=== PATIENT | female | born 1985 | race Caucasian/White ===

== ENCOUNTER 2016-08-08 19:48 | Emergency (ER) | payer OTHER ==
[2016-08-08 20:12] VITALS: BP 123/85
--- NOTE | 2016-08-08 20:42 | ED UPPER/LOWER EXTREMITY COMPL ---
History of Present Illness General Chief Complaint: Hand or Wrist Injury Stated Complaint: BOTH WRISTS PAIN S/P FALL Source: patient Exam Limitations: no limitations Vital Signs & Intake/Output Vital Signs & Intake/Output Vital Signs Date Time Temp Pulse Resp B/P Pulse O2 O2 Flow FiO2 Ox Delivery Rate 08/08 2011 92 22 123/85 98 Allergies Coded Allergies: Sulfa (Sulfonamide Antibiotics) (Severe, ANAPHYLAXIS 08/08/16) procaine (ANAPHYLAXIS 08/08/16) Reconcile Medications Vit No.130/Iron/FA ( Tablet) 27 MG IRON-800 MCG TABLET 1 TAB PO DAILY SUPPLEMENT (Reported) Triage Note: PER PT FELL SNOWBOARDING PAIN TO BILAT WRISTS L>R. L WRIST SPLINTED BY SNOW PATROL. DENIES NEED FOR MOTRIN. Triage Nurses Notes Reviewed? yes Onset: Abrupt Duration: constant Timing: recent history Severity: moderate Severity Numbers: 6 Pain/Injury Location: Bilateral: Wrist. Method of Injury: sports injury No Modifying Factors: none : No Patient currently breastfeeds: No HPI: Patient is a 30-year-old female who presents emergency room seen that today while snowboarding patient lost her balance and fell backwards in which she braced her fall with her outstretched bilateral hands in which she immediately had pain to both wrists. Pain is more severe on the left than the right. Denies any head strike back pain abdominal pain and trouble pain or shoulder pain. Patient was splinted by first aid team at the [facility] to the left wrist. (MARI SHARIF) Past History Travel History Traveled to [place] past 21 day No Medical History Any Pertinent Medical History? see below for history Neurological: NONE EENT: NONE Cardiovascular: NONE Respiratory: asthma Gastrointestinal: NONE Hepatic: NONE Renal: NONE Musculoskeletal: NONE Psychiatric: NONE Endocrine: NONE Surgical History Surgical History: non-contributory Psychosocial History Tobacco Use: Never used Family History Hx Contributory? No (MARI SHARIF) Review of Systems Review of Systems Constitutional: Reports: no symptoms. EENTM: Reports: no symptoms. Respiratory: Reports: no symptoms. Cardiovascular: Reports: no symptoms. Gastrointestinal/Abdominal: Reports: no symptoms. Genitourinary: Reports: no symptoms. Musculoskeletal: Reports: see HPI, joint pain. Skin: Reports: no symptoms. Neurological/Psychological: Reports: no symptoms. Hematologic/Endocrine: Reports: no symptoms. Immunological: Reports: no symptoms. All Other Systems: Reviewed and Negative (MARI SHARIF) Physical Exam Physical Exam General Appearance: no apparent distress, alert, awake, comfortable Neurologic/Tendon: normal sensation, normal motor functions, normal tendon functions, responds to pain, no evidence tendon injury, no pulse deficit Skin: intact, normal color, warm/dry Comments: Well-developed well-nourished person in no acute distress HEENT: Normal EENT exam. Neck: Supple, no lymphadenopathy, normal range of motion without pain or tenderness No central spinous tenderness Back: Nontender, no CVA tenderness. No central spinous tenderness Cardiovascular: Regular rate and rhythms no murmurs rubs or gallops, normal JVP Respiratory: Chest nontender. No respiratory distress.breath sounds clear to auscultation bilaterally Abdomen: Soft, nontender nondistended, no appreciable organomegaly. Normal bowel sounds. No ascites Extremity: No edema, no calf tenderness to palpation, normal and equal pulses. Bilateral shoulder nontender full active range of motion Bilateral elbow normal inspection nontender full active range of motion Left wrist noted radial distal point tenderness skin intact mild swelling decreased active range of motion noted with flexion and extension Right wrist noted generalized point tenderness with mild decreased active range of motion noted skin intact no swelling Radial pulse bilaterally +2 Bilateral upper extremity dermatomes intact capillary refill less than 2 seconds No scaphoid tenderness noted to right and left hand Neuro: Alert oriented x3, motor sensory normal, Skin: No appreciable rash on exposed skin, skin is warm and dry. Psych: Mood and affect is normal, memory and judgment is normal. (MAIR SHARIF) Progress Differential Diagnosis: arterial insufficiency, cellulitis, CHF, compartment syndrome, contusion, dislocation, DVT, fracture, gout, septic arthritis, sprain, tendon injury Plan of Care: Orders Procedure Date/time Status Durable Medical Equipment 08/084 Active URINE 08/08 2014 Complete Laboratory Tests 08/08/162033: Urine Test NEGATIVE Shoulder immobilizer was placed to left arm for stability and comfort after the sugar tong splint was applied to left forearm. I discussed disposition plan with patient to follow up with orthopedic doctor and she will comply. Upon discharge patient looks well no apparent distress. Patient was offered pain medications on multiple occasions in the emergency room and declined. (MRAI SHARIF) Diagnostic Imaging: Viewed by Me: Radiology Read. Radiology Impression: acute abnormality, fracture Comments: PATIENT: BEACH,JACIEL PRESENT AGE: 30 PATIENT ACCOUNT NO: [id number] : 84 LOCATION: [facility] ORDERING PHYSICIAN: MARI LEWIS SERVICE DATE: 08/08/16 EXAM TYPE: RAD - XRY-WRIST COMPLETE-LEFT; XRY-WRIST COMPLETE-RIGHT EXAMINATION: XRY-WRIST COMPLETE-LEFT, XRY-WRIST COMPLETE-RIGHT CLINICAL INFORMATION: Snowboarding accident. Injured both wrists. COMPARISON: None. TECHNIQUE: 4 views of both wrists. FINDINGS: Left wrist: The patient has incurred a nondisplaced nonangulated slightly comminuted slightly impacted fracture involving the metaphysis of the distal left radius. Fracture does involve the articular cortex. The ulna is intact. There is no dislocation. Right wrist: Negative for fracture or dislocation. Normal soft tissues. IMPRESSION: Nondisplaced slightly comminuted minimally impacted fracture involving the distal left radius with articular cortical involvement. No dislocation. (MARI SHARIF) Departure Departure Disposition: HOME OR SELF CARE Condition: Stable Clinical Impression Primary Impression: Fracture of left distal radius Secondary Impressions: Right wrist sprain Referrals: FELIPE PETERS,ANGIE (PCP/Family) VALERI TOLENTINO MD Additional Instructions: As discussed begin [id number] Tylenol if needed for pain and inflammation as directed. Tomorrow please call Dr. Tolentino-ORTHOPEDICS to establish an appointment to be seen for further evaluation treatment. Please leave the splint on the left forearm that has been applied to the emergency room at all Times until you follow with the orthopedic doctor. Only remove the right splint to the wrist when icing and taking a shower. Begin icing the area 20 minutes every 2 hours for pain and inflammation. If symptoms worsen return to emergency room. Begin using the shoulder immobilizer to your left arm for support of your splint at all times. Departure Forms: Customer Survey General Discharge Information (MARI SHARIF) PA/[employer]ATE [employer] PRESS FEEDER Co-Sign Statement Statement: ED Attending supervision documentation- [] I saw and evaluated the patient. I have also reviewed all the pertinent lab results and diagnostic results. I agree with the findings and the plan of care as documented in the PA's/[employer] PRESS FEEDER's documentation. [X] I have reviewed the ED Record and agree with the PA's/[employer] PR[employer] FEEDER's documentation. [] Additions or exceptions (if any) to the PAs/[employer] PRESS FEEDER's note and plan are summarized below: [] (SD PETERS,CHANTAL An) Procedures Splinting Location: BILATERAL WRISTS Manual Alignment Performed: No Hand-Made Type: orthoglass Splint: wrist Splint Applied By: splint applied by me Pre-Proc Neuro Vasc Exam: normal Post-Proc Neuro Vasc Exam: normal Progress: To the left wrist I applied a sugar tong splint using WEBRIL, ORTHOPEDIC GLASS AND RIGO WRAP To the right wrist I applied a cockup wrist splint in which to patient's upper extremities. (ANIRUDH LEWIS,MARI)
[2016-08-08] MEDS ORDERED: PRENATAL TABLE1 EAC2 PO (21:20)
--- NOTE | 2016-08-08 22:18 | RADIOLOGY REPORT ---
EXAMINATION: XRY-WRIST COMPLETE-LEFT, XRY-WRIST COMPLETE-RIGHT CLINICAL INFORMATION: Snowboarding accident. Injured both wrists. COMPARISON: None. TECHNIQUE: 4 views of both wrists. FINDINGS: Left wrist: The patient has incurred a nondisplaced nonangulated slightly comminuted slightly impacted fracture involving the metaphysis of the distal left radius. Fracture does involve the articular cortex. The ulna is intact. There is no dislocation. Right wrist: Negative for fracture or dislocation. Normal soft tissues. IMPRESSION: Nondisplaced slightly comminuted minimally impacted fracture involving the distal left radius with articular cortical involvement. No dislocation.
== END 2016-08-08 23:04 ==
LOC: ERH 19:48
DX: S52.502A Unspecified fracture of the lower end of left radius, initial encounter for closed fracture (principal); S63.501A Unspecified sprain of right wrist, initial encounter; V00.311A Fall from snowboard, initial encounter
CPT/HCPCS: 73110-LT; 73110-RT; 81025

== ENCOUNTER 2017-07-25 20:42 | Inpatient (IN) | payer OTHER ==
[~2017-07-25] VITALS: Ht 165.1 cm; Wt 85.9 kg
[~2017-07-25 20:42] MED LIST: PRENATAL TABLE1 EAC2 PO
[2017-07-25 23:33] LABS: ABSOLUTE BASOPHIL COUNT 0 /CUMM (0.0-0.2); ABSOLUTE EOSINOPHIL COUNT 0.1 /CUMM (0.0-0.7); ABSOLUTE GRANULOCYTE CT 11.1 /CUMM (1.4-6.5); ABSOLUTE LYMPH COUNT 2.9 /CUMM (1.2-3.4); BASOPHIL % 0.2 % (0.0-2.0); EOSINOPHIL % 0.7 % (0-5); GRANULOCYTE % 73.4 % (42.2-75.2); HEMATOCRIT 35.6 % (37-47); MEAN CORPUSCULAR HGB 28.5 PG (27.0-31.0); MEAN CORPUSCULAR HGB CONC 33.7 G/DL (33.0-37.0); MEAN CORPUSCULAR VOLUME 84.5 FL (81.0-99.0); PLATELET COUNT 347 /CUMM (130-400); RBC DISTRIBUTION WIDTH 16.6 % (11.5-14.5); RED BLOOD CELL CT 4.22 /CUMM (4.20-5.40); WHITE BLOOD CELL COUNT 15.1 /CUMM (4.8-10.8)
[2017-07-26 14:24] LABS: ABSOLUTE BASOPHIL COUNT 0 /CUMM (0.0-0.2); ABSOLUTE EOSINOPHIL COUNT 0 /CUMM (0.0-0.7); ABSOLUTE GRANULOCYTE CT 19.2 /CUMM (1.4-6.5); ABSOLUTE LYMPH COUNT 1.5 /CUMM (1.2-3.4); ABSOLUTE MONOCYTE COUNT 0.5 /CUMM (0.10-0.60); BASOPHIL % 0.1 % (0.0-2.0); EOSINOPHIL % 0 % (0-5); GRANULOCYTE % 90.6 % (42.2-75.2); HEMATOCRIT 31.1 % (37-47); MEAN CORPUSCULAR HGB 28.8 PG (27.0-31.0); MEAN CORPUSCULAR HGB CONC 34.3 G/DL (33.0-37.0); MEAN PLATELET VOLUME 6.9 FL (7.4-10.4); PLATELET COUNT 348 /CUMM (130-400); RBC DISTRIBUTION WIDTH 16.2 % (11.5-14.5); WHITE BLOOD CELL COUNT 21.2 /CUMM (4.8-10.8)
--- NOTE | 2017-07-26 14:45 | Operative Report ---
Operative/Inv Procedure Report Surgery Date: 07/26/17 Name of Procedure: Primary low flap transverse section via Pfannenstiel skin incision Pre-Operative Diagnosis: Patient requests section in labor term Post-Operative Diagnosis: Same OP Estimated Blood Loss: 1999 Surgeon/It Systems Analyst: Taj PETERS,Meliza Oropeza and Dr. Seng Johnson [facility] Anesthesia: block Operative/Procedure Note Note: Seizure note patient was taken the operating room placed on position patient had a Meeks placed on abdomen was prepped and draped so fashion I we did skin testing for surgery and found to be adequate a timeout was performed on through Pfannenstiel skin incision 2 finger breadths of symptoms pubis the skin was cut was carried down to rectus fascia which was cut in curvilinear fashion I direction using curved males at this point the rectus sheath was on the peritoneum was entered high into the abdomen I at this point the lower uterine segment was ballooned out in the lower uterine segment a bladder flap was developed the uterus was nicked entered with the back of the knife dissected bluntly as well as sharply. The was delivered over the abdominal wall from OP cord was doubly clamped cut section of the cord was sent for PH was handed billing analyst was waiting delivering to aid in resuscitation placenta was delivered manually noted to be intact impression of abruption on the placenta is being sent to pathology at this point the uterus was injected with intravenous Pitocin and intramyometrial myometrial Pitocin was used for uterine contractility the uterine artery on the right was bleeding was clamped with Saundra and the uterine artery on the left was bleeding clamped with a Saundra of 0 suture was used to ligate the uterine artery on the right and 0 suture was used to ligate the uterine artery on the left the eye uterus is reapproximated using running locking suture of 0 was indicated interrupted [id number] eights on as well as Intralipid imbricated with running locking suture of 0 hemostasis was apparent at this point the peritoneum was reapproximated 0 fascia was reapproximated after the abdomen the immediate irrigated copious amounts warm saline until clear and the incision on the uterus had been found to be hemostatic [place] was applied to the uterine incision the fascia was reapproximated to continue sutures #1 skin was reapproximated using lori after Bovie coagulation subcutaneous tissue I an intraoperative CB C was sent on at this point the on approximately thousand cc was evacuated from the vagina a trejo speculum was liters to look at the cervix which was closed and there was no further bleeding interventional radiology had been contacted and we will say breasts of the uterine arteries for possible uterine artery ablations 2 units of blood was started patient was transferred recovery room awake and alert with counts correct and the urine was clear
[2017-07-26 18:28] LABS: ABSOLUTE BASOPHIL COUNT 0 /CUMM (0.0-0.2); ABSOLUTE EOSINOPHIL COUNT 0 /CUMM (0.0-0.7); ABSOLUTE GRANULOCYTE CT 23.4 /CUMM (1.4-6.5); ABSOLUTE LYMPH COUNT 1.1 /CUMM (1.2-3.4); ABSOLUTE MONOCYTE COUNT 0.7 /CUMM (0.10-0.60); BASOPHIL % 0 % (0.0-2.0); EOSINOPHIL % 0 % (0-5); GRANULOCYTE % 92.6 % (42.2-75.2); HEMATOCRIT 30.4 % (37-47); MEAN CORPUSCULAR HGB 29.7 PG (27.0-31.0); MEAN CORPUSCULAR HGB CONC 34.2 G/DL (33.0-37.0); MEAN CORPUSCULAR VOLUME 86.9 FL (81.0-99.0); MEAN PLATELET VOLUME 6.9 FL (7.4-10.4); PLATELET COUNT 274 /CUMM (130-400); RBC DISTRIBUTION WIDTH 15.2 % (11.5-14.5); WHITE BLOOD CELL COUNT 25.3 /CUMM (4.8-10.8)
--- NOTE | 2017-07-26 19:32 | PN- Post Delivery/GYN ---
Subjective Subjective: Patient complaint of pain Objective Last 24 Hrs of Vital Signs/I&O Vital Signs Date Time Temp Pulse Resp B/P B/P Pulse O2 O2 Flow FiO2 Mean Ox Delivery Rate 07/26 0029 132/80 Intake & Output 07/26 1600 07/26 0800 07/26 0000 Intake Total Output Total Balance Patient 190 lb Weight Physical Exam: Pale white female HEENT anicteric Dressing dry fundus firm at umbilicus Vagina expressed for 500 mL of clot from the uterus extremities +1 edema Assessment/Plan Assessment/Plan Assessment hemorrhage secondary to uterine artery laceration severe anemia Plan Cytotec rectally thousand milligrams Lasix 2 more units of packed red blood cells interventional radiology embolization of the hypogastrics and follow-up in the ICU CB C2 hours after fourth unit of blood target hematocrit 31
--- NOTE | 2017-07-26 20:14 | Cons- Medical ---
[facility] General Information and HPI Consulting Request Date of Consult: 07/26/17 Requested By: Meliza Vang MD Reason for Consult: Anemia secondary to hemorrhage Source of Information: patient, Dr. Vang Exam Limitations: no limitations History of Present Illness: Patient is a 31-year-old female with no significant past medical history presented to the childbirth center today for delivery. She was in labor for the whole day. Patient was intended to have a normal delivery however was unable to push enough. This prompted a section due to unfavorable position of the fetus. Patient had hemorrhage secondary to uterine artery lacerations.No history of bleeding disorders. She was transfused 2 units of blood and IV fluids along with MIsoprostol rectally. Bleeding stopped however she was still found to have 1000cc of blood in her uterus and was sent down to IR for possible embolization. She underwent bilateral hypogastric artery embolization in the IR suite by Dr. Germain however no active sources of bleeding was found. Patient has been currently transferred to ICU for close monitoring of hemodynamics, I's and O's and every 2 hours labs Allergies/Medications Allergies: Coded Allergies: Sulfa (Sulfonamide Antibiotics) (Severe, ANAPHYLAXIS 08/08/16) procaine (ANAPHYLAXIS 08/08/16) Home Med List: Vit No.130/Iron/FA ( Tablet) 27 MG IRON-800 MCG TABLET 1 TAB PO DAILY SUPPLEMENT (Reported) Review of Systems Review of Systems Constitutional: Reports: malaise, weakness. EENTM: Reports: no symptoms. Cardiovascular: Reports: no symptoms. Respiratory: Reports: no symptoms. GI: Reports: no symptoms. Genitourinary: Reports: no symptoms. Musculoskeletal: Reports: back pain, muscle pain. Skin: Reports: change in skin color. Neurological/Psychological: Reports: anxiety. Past History Travel History Traveled to [place] past 21 day No Medical History Neurological: NONE EENT: NONE Cardiovascular: NONE Respiratory: asthma Gastrointestinal: NONE Hepatic: NONE Renal: NONE Musculoskeletal: NONE Psychiatric: NONE Endocrine: NONE Surgical History Surgical History: non-contributory Psychosocial History Smoking Status: Never Smoked Exam & Diagnostic Data Last 24 Hrs of Vital Signs/I&O Vital Signs Date Time Temp Pulse Resp B/P B/P Pulse O2 O2 Flow FiO2 Mean Ox Delivery Rate 07/26 0029 132/80 Intake & Output 01/03 1600 07/26 0800 07/26 0000 Intake Total Output Total Balance Patient 86.183 kg Weight Physical Exam General Appearance: well developed/nourished, alert, awake, mild distress, obese Head: atraumatic, normal appearance Eyes: Bilateral: normal appearance, PERRL, EOMI, pale conjunctivae. Ears, Nose, Throat: normal pharynx, normal ENT inspection Neck: normal inspection, supple, full range of motion Respiratory: normal breath sounds, quiet respiration, lungs clear, mild wheezing on the right base Cardiovascular: regular rate/rhythm, tachycardia Breasts Breast appear nl Gastrointestinal: soft, non-tender, tenderness, C section incision appears clean and intact. No drainage Back: normal inspection Extremities: normal inspection, normal capillary refill, no edema Last 24 Hrs of Labs/Dami: Laboratory Tests 07/26/17 1815: CBC w Diff MAN DIFF ORDERED, RBC 3.50 L, MCV 86.9, MCH 29.7, RDW 15.2 H, MPV 6.9 L, Gran % 92.6 H, Lymphocytes % 4.5 L, Monocytes % 2.9, Eosinophils % 0, Basophils % 0, Absolute Granulocytes 23.4 H, Segmented Neutrophils 88 H, Band Neutrophils 7 H, Absolute Lymphocytes 1.1 L, Lymphocytes 3 L, Monocytes 2, Absolute Monocytes 0.7 H, Absolute Eosinophils 0, Absolute Basophils 0, Platelet Estimate ADEQUATE, Polychromasia 1+, Anisocytosis 1+, PUBS MCHC 34.2 07/26/17 1412: CBC w Diff MAN DIFF ORDERED, RBC 3.70 L, MCV 84.0, MCH 28.8, RDW 16.2 H, MPV 6.9 L, Gran % 90.6 H, Lymphocytes % 6.9 L, Monocytes % 2.4, Eosinophils % 0, Basophils % 0.1, Absolute Granulocytes 19.2 H, Segmented Neutrophils 90 H, Band Neutrophils 3, Absolute Lymphocytes 1.5, Lymphocytes 5 L, Monocytes 2, Absolute Monocytes 0.5, Absolute Eosinophils 0, Absolute Basophils 0, Platelet Estimate ADEQUATE, Normocytic RBCs VERIFIED, Normochromic RBCs VERIFIED, PUBS MCHC 34.3, Fld Total RBCs Counted 100 07/25/17 2315: CBC w Diff NO MAN DIFF REQ, RBC 4.22, MCV 84.5, MCH 28.5, RDW 16.6 H, MPV 7.0 L, Gran % 73.4, Lymphocytes % 19.2 L, Monocytes % 6.5, Eosinophils % 0.7, Basophils % 0.2, Absolute Granulocytes 11.1 H, Absolute Lymphocytes 2.9, Absolute Monocytes 1.0 H, Absolute Eosinophils 0.1, Absolute Basophils 0, PUBS MCHC 33.7, RPR Titer/FTA Pending, Urinalysis LIGHT H, Urine Color YEL, Urine Clarity CLEAR, Urine pH 6.5, Ur Specific [place] 1.020, Urine Protein NEG, Urine Ketones NEG, Urine Nitrite NEG, Urine Bilirubin NEG, Urine Urobilinogen 0.2, Ur Leukocyte Esterase TRACE H, Ur Microscopic SEDIMENT EXAMINED, Urine RBC 10-15 H, Urine WBC 5-10 H, Ur Epithelial Cells FEW, Urine Crystals 1+ CA OX H, Urine Bacteria MOD H, Urine Mucus MOD H, Urine Hemoglobin MOD H, Urine Glucose NEG Assessment/Plan Assessment/Plan Patient is a 31-year-old female with no significant past medical history presented to the childbirth center today for delivery. Patient had hemorrhage secondary to uterine artery lacerations. No history of bleeding disorders. She was transfused 2 units of blood and IV fluids along with MIsoprostol rectally. Bleeding stopped however she was still found to have 1000cc of blood in her uterus and was sent down to IR for possible embolization. She underwent bilateral hypogastric artery embolization in the IR suite by Dr. Germain however no active sources of bleeding was found. Patient has been currently transferred to ICU for close monitoring of hemodynamics, I's and O's and every 2 hours labs. Assessment : #1 hemorrhage due to laceration of uterine arteries #2 Status post IR embolization of hypogastric arteries/no active source of bleeding identified #3 Anemia secondary to acute blood loss #4 Status post section #5 Tachycardia #6 leukocytosis with bandemia #7 Anxiety #8 Shoulder pain Plan -Close monitoring in ICU -Vitals per protocol -Every 2 hours labs -Meeks in, strict I's and O's -Check EKG now, troponin. -Replete electrolytes as needed. -Status post 2 units of blood transfusion. Last H&H 10.4/30.4(baseline 11-12). We will recheck CBC and ICU bundle at 10 PM. Transfusion goal more than 10/30. Closely monitor for bleeding. -Gentle hydration with IV D5 half normal saline at 100 cc an hour -Cautioned not to fluid overload. Patient got IV 10 mg Lasix at the childbirth center -Pain control with acetaminophen 1 g every 6 hours IV when necessary. Lidoderm patches for shoulder pain -Leukocytosis likely reactive. Check labs at 10 PM. If bandemia persists, get blood/urine cultures -CRCU consult in a.m. -COCOA POWDER MIXER OPERATOR recommendations appreciated. Can reach Dr. Vang at [phone] -Nothing by mouth for now. We will advance diet in a.m. -DVT prophylaxis Alps(no pharmacological anticoagulation until tomorrow) Stock Letterer Dr. Warner aware of the patient. Problem List: 1. hemorrhage 2. Consult Acknowledgment - Thank you for your consult request. Graham Razo 07/27/17 0456: Assessment/Plan Consult Acknowledgment - Thank you for your consult request. Attending MD Review Statement Attending Statement Attending MD Statement: examined this patient, discuss w/resident/PA/CROP PEST CONTROL SPECIALIST, agreed w/resident/PA/CROP PEST CONTROL SPECIALIST, discussed with family, reviewed EMR data (avail), reviewed images, amended to note Attending Assessment/Plan: Reason of consult: hemorrhage 31-year-old female , no significant past medical history was in childbirth center for normal delivery, but secondary to unfavorable position patient underwent section. It was complicated by hemorrhage secondary to uterine artery laceration. Patient was transfused 2 units PRBC, aggressive IV hydration and IR was consulted for possible embolization. It was estimated that Patient may have lost 1000 ML of blood. Patient was borderline hypotensive, improved with blood transfusion and IV fluids. Patient underwent bilateral hypogastric artery embolization. Patient was transferred to ICU for close hemodynamic monitoring. Patient complains of dryness of mouth and vague abdominal discomfort otherwise asymptomatic. On examination blood pressure low normal range, mild tachycardia, mucosa dry, trace pedal edema, abdominal band and dressing, right femoral sheath. Patient has low H&H, leukocytosis with left shift. Anemia is obviously secondary to acute blood loss. Leukocytosis can be reactive. So far patient has been transfused 4 units PRBC, we will closely watch H&H, blood pressure and consultative management for leukocytosis, will need blood culture if persistently high WBC or fever spike. CRCU consult in a.m.
[2017-07-26 22:33] LABS: ABSOLUTE BASOPHIL COUNT 0 /CUMM (0.0-0.2); ABSOLUTE EOSINOPHIL COUNT 0 /CUMM (0.0-0.7); ABSOLUTE LYMPH COUNT 1.5 /CUMM (1.2-3.4); ABSOLUTE MONOCYTE COUNT 0.9 /CUMM (0.10-0.60); BASOPHIL % 0 % (0.0-2.0); EOSINOPHIL % 0 % (0-5); HEMATOCRIT 28.6 % (37-47); MEAN CORPUSCULAR HGB 30.2 PG (27.0-31.0); MEAN CORPUSCULAR HGB CONC 34.6 G/DL (33.0-37.0); MEAN CORPUSCULAR VOLUME 87.4 FL (81.0-99.0); PLATELET COUNT 263 /CUMM (130-400); RBC DISTRIBUTION WIDTH 15.3 % (11.5-14.5); RED BLOOD CELL CT 3.27 /CUMM (4.20-5.40); WHITE BLOOD CELL COUNT 22.5 /CUMM (4.8-10.8)
[2017-07-26 23:01] LABS: GRANULOCYTE % 89.1 % (42.2-75.2)
[2017-07-27] VITALS: BP 93/51
[2017-07-27 06:01] LABS: ABSOLUTE BASOPHIL COUNT 0 /CUMM (0.0-0.2); ABSOLUTE EOSINOPHIL COUNT 0 /CUMM (0.0-0.7); ABSOLUTE GRANULOCYTE CT 13.8 /CUMM (1.4-6.5); ABSOLUTE LYMPH COUNT 2.6 /CUMM (1.2-3.4); ABSOLUTE MONOCYTE COUNT 0.9 /CUMM (0.10-0.60); BASOPHIL % 0.3 % (0.0-2.0); EOSINOPHIL % 0.1 % (0-5); GRANULOCYTE % 79.3 % (42.2-75.2); HEMATOCRIT 28.8 % (37-47); MEAN CORPUSCULAR HGB 30.1 PG (27.0-31.0); MEAN CORPUSCULAR HGB CONC 34.8 G/DL (33.0-37.0); MEAN CORPUSCULAR VOLUME 86.5 FL (81.0-99.0); MEAN PLATELET VOLUME 6.9 FL (7.4-10.4); PLATELET COUNT 233 /CUMM (130-400); RBC DISTRIBUTION WIDTH 15.6 % (11.5-14.5); RED BLOOD CELL CT 3.33 /CUMM (4.20-5.40); WHITE BLOOD CELL COUNT 17.4 /CUMM (4.8-10.8)
[2017-07-27 08:00] VITALS: BP 122/74
--- NOTE | 2017-07-27 08:14 | PN- Resident CRCU ---
Subjective HPI/CRCU Issues: #1 hemorrhage due to laceration of uterine arteries #2 Status post IR embolization of hypogastric arteries/no active source of bleeding identified #3 Anemia secondary to acute blood loss #4 Status post section #5 Tachycardia #6 leukocytosis with bandemia #7 Anxiety #8 Shoulder pain 24 Hour Events: Patient was transferred to the ICU s/p IR embolization of hypogastric arteries for monitoring. Overnight she reports no complaints or acute events. Objective Vital Signs & I&O Last 8 Hrs of Vitals and I&O: Tmax: 98.6 BP: 93-177/51-74 HR:101-108 I:692 O:1000 Exam General Appearance: well developed/nourished, no apparent distress, alert, awake , comfortable Head: atraumatic, normal appearance Ears, Nose, Throat: normal pharynx, normal ENT inspection, hearing grossly normal Neck: normal inspection, supple, full range of motion Respiratory: normal breath sounds, no respiratory distress, lungs clear Cardiovascular: regular rate/rhythm Gastrointestinal: normal bowel sounds, soft, Pelvic sutures intact Extremities: normal inspection, normal range of motion, no edema, L DP nonpalpable, heard with doppler Cranial Nerves: normal hearing, normal speech, PERRL Current Medications: Current Medications Sig/Greg Start time Last Medication Dose Route Stop Time Status Admin Acetaminophen 650 MG Q4P PRN 07/27 1245 AC PO Acetaminophen 1,000 MG Q6P PRN 07/26 2130 DC 07/27 N/A 1 UNIT IV 1004 Acetaminophen 1,000 MG Q6-PRN PRN 07/26 2030 DC PO Bisacodyl 10 MG DAILY NEEDED PRN 07/26 1330 DC ND Calcium Gluconate 1 GM ONCE ONE 07/27 0030 DC 07/27 Sodium Chloride 100 ML IV 07/27 0129 0047 Cefazolin Sodium 2,000 MG .STK-MED ONE 07/26 1341 DC IM 07/26 1342 Citric Acid/Sodium 30 ML .[0NCE] 07/26 1330 DC Citrate PO Dextrose/Sodium 1,000 ML Q20H 07/26 2030 DC 07/26 Chloride IV 2040 Docusate Sodium 100 MG AT BEDTIME PRN 07/27 1245 AC PO Docusate Sodium 100 MG AT BEDTIME PRN 07/26 1330 DC PO Enoxaparin Sodium 40 MG DAILY 07/28 1000 AC SC Enoxaparin Sodium 40 MG DAILY 07/26 1324 DC SC Fentanyl Citrate 0 .STK-MED ONE 07/26 1748 DC .ROUTE Furosemide 10 MG ONCE ONE 07/26 1730 DC IV 07/26 1731 Hydroxyzine HCl 50 MG AT BEDTIME NEED.. 07/28 0000 AC PO Hydroxyzine HCl 50 MG AT BEDTIME NEED.. 07/27 0000 DC PO Ibuprofen 800 MG Q6P PRN 07/27 1245 AC PO Ibuprofen 800 MG Q6P PRN 07/26 1330 DC PO Lactated Ringer's 1,000 ML Q8H 07/26 1330 DC IV Lactated Ringer's 1,000 ML Q8H 07/26 0030 DC 07/26 IV 1239 Lidocaine 1 PAT 2200 07/26 2200 DC EXT Magnesium Hydroxide 30 ML DAILY NEEDED PRN 07/27 1245 AC PO Magnesium Hydroxide 30 ML DAILY NEEDED PRN 07/26 1330 DC PO Magnesium Oxide 400 MG ONE ONE 07/27 0830 DC 07/27 PO 07/27 0831 1129 Magnesium Sulfate 1 GM .STK-MED ONE 07/27 0203 DC IV 07/27 0204 Magnesium Sulfate 1 GM .STK-MED ONE 07/27 0046 DC IV 07/27 0047 Magnesium Sulfate 1 GM Q2H 07/26 2315 DC 07/27 Dextrose/Water 100 ML IV 07/27 0314 0202 Midazolam HCl 0 .STK-MED ONE 07/26 1748 DC .ROUTE Midazolam HCl 5 MG .STK-MED ONE 07/26 1341 DC IM 07/26 1342 Misoprostol 1,000 MCG ONCE ONE 07/26 1715 DC 07/26 ND 07/26 1716 1715 Misoprostol 1,000 MCG .STK-MED ONE 07/26 1711 DC PO 07/26 1712 Morphine Sulfate 10 MG .STK-MED ONE 07/26 1340 DC IV 07/26 1341 Oxycodone/ 1 TAB Q4P PRN 07/27 1245 AC Acetaminophen PO Oxycodone/ 2 TAB Q4P PRN 07/27 1245 AC Acetaminophen PO Oxycodone/ 1 TAB Q4P PRN 07/26 1330 DC Acetaminophen PO Oxycodone/ 2 TAB Q4P PRN 07/26 1330 DC Acetaminophen PO Oxytocin 10 UNITS ONCE ONE 07/27 1245 DC IM 07/27 1246 Oxytocin 20 UNITS Q8H 07/26 1330 DC Lactated Ringer's 1,000 ML IV 07/26 2129 Oxytocin 10 UNITS ONCE ONE 07/26 1330 DC IM 07/26 1331 Oxytocin 30 UNITS PER PROTOCL 07/26 0800 DC 07/26 Lactated Ringer's 500 ML IV 0807 Senna 187 MG AT BEDTIME NEED.. 07/27 1245 AC PO Senna 187 MG AT BEDTIME NEED.. 07/26 1330 DC PO Impression/Plan Impression/Problem List Impression: 31-year-old female with no significant past medical history s/p low flap transverse delivery with hemorrhage s/p embolization of hypogastric arteries transferred to ICU for close monitoring. Patient currently stable and required no other medical interventions. As per Dr. Taj terry is stable for transfer to [facility] Active issues: #1 hemorrhage due to laceration of uterine arteries s/p 4U prbcs #2 Status post IR embolization of hypogastric arteries/no active source of bleeding identified #3 Anemia secondary to acute blood loss #4 Status post section #5 Tachycardia #6 leukocytosis with bandemia #7 Anxiety #8 Shoulder pain #9 Hypomagnesemia Plan * Strict I&O * Monitor vitals * Monitor H&H * Continue LR for hydration * Continue bowel regmien * continue pain pathway * Replete Mg * Advance diet as tolerated * JACKERMAN recommendations appreciated DVT ppx: ALPS Problem List: 1. hemorrhage Pain Ratin Tomorrow's Labs & Rationales: None Plan DVT/Prophylaxis: mechanical
--- NOTE | 2017-07-27 09:50 | PN- CRCU ---
Subjective HPI/Critical Care Issues: Doing well hemorrhage secondary to uterine artery laceration severe anemia S/p embolization bilateral hypogastric artery embolization in the IR suite S/p 4 units of prbc Stable now No sig pain No leg pain Objective Current Medications: Current Medications Sig/Greg Start time Last Medication Dose Route Stop Time Status Admin Acetaminophen 1,000 MG Q6P PRN 07/26 2130 AC 07/26 N/A 1 UNIT IV 2138 Acetaminophen 1,000 MG Q6-PRN PRN 07/26 2030 DC PO Bisacodyl 10 MG DAILY NEEDED PRN 07/26 1330 DC NC Calcium Gluconate 1 GM ONCE ONE 07/27 0030 DC 07/27 Sodium Chloride 100 ML IV 07/27 0129 0047 Cefazolin Sodium 2,000 MG .STK-MED ONE 07/26 1341 DC IM 07/26 1342 Citric Acid/Sodium 30 ML .[0NCE] 07/26 1330 DC Citrate PO Dextrose/Sodium 1,000 ML Q20H 07/26 2030 AC 07/26 Chloride IV 2040 Docusate Sodium 100 MG AT BEDTIME PRN 07/26 1330 DC PO Enoxaparin Sodium 40 MG DAILY 07/26 1324 DC SC Fentanyl Citrate 0 .STK-MED ONE 07/26 1748 DC .ROUTE Furosemide 10 MG ONCE ONE 07/26 1730 DC IV 07/26 1731 Hydroxyzine HCl 50 MG AT BEDTIME NEED.. 07/27 0000 DC PO Ibuprofen 800 MG Q6P PRN 07/26 1330 DC PO Lactated Ringer's 1,000 ML Q8H 07/26 1330 DC IV Lactated Ringer's 1,000 ML Q8H 07/26 0030 DC 07/26 IV 1239 Lidocaine 1 PAT 2200 07/26 2200 AC EXT Magnesium Hydroxide 30 ML DAILY NEEDED PRN 07/26 1330 DC PO Magnesium Oxide 400 MG ONE ONE 07/27 0830 DC PO 07/27 0831 Magnesium Sulfate 1 GM .STK-MED ONE 07/27 0046 DC IV 07/27 0047 Magnesium Sulfate 1 GM Q2H 07/26 2315 DC 07/27 Dextrose/Water 100 ML IV 07/27 0314 0202 Midazolam HCl 0 .STK-MED ONE 07/26 1748 DC .ROUTE Midazolam HCl 5 MG .STK-MED ONE 07/26 1341 DC IM 07/26 1342 Misoprostol 1,000 MCG ONCE ONE 07/26 1715 DC 07/26 NC 07/26 1716 1715 Misoprostol 1,000 MCG .STK-MED ONE 07/26 1711 DC PO 07/26 1712 Morphine Sulfate 10 MG .STK-MED ONE 07/26 1340 DC IV 07/26 1341 Oxycodone/ 1 TAB Q4P PRN 07/26 1330 DC Acetaminophen PO Oxycodone/ 2 TAB Q4P PRN 07/26 1330 DC Acetaminophen PO Oxytocin 20 UNITS Q8H 07/26 1330 DC Lactated Ringer's 1,000 ML IV 07/26 2129 Oxytocin 10 UNITS ONCE ONE 07/26 1330 DC IM 07/26 1331 Oxytocin 30 UNITS PER PROTOCL 07/26 08 DC 07/26 Lactated Ringer's 500 ML IV 0807 Senna 187 MG AT BEDTIME NEED.. 07/26 1330 DC PO Vital Signs & I&O Last 24 Hrs of Vitals and I&O: Vital Signs Date Time Temp Pulse Resp B/P B/P Pulse O2 O2 Flow FiO2 Mean Ox Delivery Rate 07/27 08 98.0 101 20 122/74 96 Room Air 07/27 0400 97 Room Air 07/27 0000 98.6 108 20 93/51 96 Room Air 07/27 0000 96 Room Air 07/26 2237 98.6 07/26 2138 99.3 07/26 2000 10 Nasal 2.0L Cannula Intake & Output 07/27 1600 07/27 0800 07/27 0000 Intake Total 692 2171 Output Total 1000 2200 Balance -308 -29 Intake, Blood 350 1050 Product Intake, IV 342 1121 Intake, Oral 0 0 Number 0 0 Bowel Movements Output, Other 2000 Output, Urine 1000 200 Patient 189 lb Weight Weight Bed scale Measurement Method Laboratory Tests 07/27 07/27 0600 0525 Chemistry Sodium (137 - 145 mmol/L) 136 L Potassium (3.5 - 5.1 mmol/L) 4.0 Chloride (98 - 107 mmol/L) 105 Carbon Dioxide (22 - 30 mmol/L) 23 Anion Gap (5 - 16) 7 BUN (7 - 17 mg/dL) 8 Creatinine (0.5 - 1.0 mg/dL) 0.6 Estimated GFR (>60 ml/min) > 60 Glucose (65 - 99 mg/dL) 93 Calcium (8.4 - 10.2 mg/dL) 7.6 L Phosphorus (2.5 - 4.5 mg/dL) 3.8 Magnesium (1.6 - 2.3 mg/dL) 1.9 Total Bilirubin (0.2 - 1.3 mg/dL) 0.6 AST (14 - 36 U/L) 33 ALT (9 - 52 U/L) 33 Troponin I (< 0.11 ng/ml) < 0.01 Albumin (3.5 - 5.0 g/dL) 1.8 L Hematology CBC w Diff Cancelled NO MAN DIFF REQ WBC (4.8 - 10.8 /CUMM) Cancelled 17.4 H RBC (4.20 - 5.40 /CUMM) Cancelled 3.33 L Hgb (12.0 - 16.0 G/DL) Cancelled 10.0 L Hct (37 - 47 %) Cancelled 28.8 L MCV (81.0 - 99.0 FL) Cancelled 86.5 MCH (27.0 - 31.0 PG) Cancelled 30.1 RDW (11.5 - 14.5 %) Cancelled 15.6 H Plt Count (130 - 400 /CUMM) Cancelled 233 MPV (7.4 - 10.4 FL) Cancelled 6.9 L Gran % (42.2 - 75.2 %) 79.3 H Lymphocytes % (20.5 - 51.1 %) 14.9 L Monocytes % (1.7 - 9.3 %) 5.4 Eosinophils % (0 - 5 %) 0.1 Basophils % (0.0 - 2.0 %) 0.3 Absolute Granulocytes (1.4 - 6.5 /CUMM) 13.8 H Absolute Lymphocytes (1.2 - 3.4 /CUMM) 2.6 Absolute Monocytes (0.10 - 0.60 /CUMM) 0.9 H Absolute Eosinophils (0.0 - 0.7 /CUMM) 0 Absolute Basophils (0.0 - 0.2 /CUMM) 0 PUBS MCHC (33.0 - 37.0 G/DL) Cancelled 34.8 07/26 07/26 2145 1815 Chemistry Sodium (137 - 145 mmol/L) 132 L Potassium (3.5 - 5.1 mmol/L) 4.0 Chloride (98 - 107 mmol/L) 104 Carbon Dioxide (22 - 30 mmol/L) 23 Anion Gap (5 - 16) 5 BUN (7 - 17 mg/dL) 9 Creatinine (0.5 - 1.0 mg/dL) 0.6 Estimated GFR (>60 ml/min) > 60 Glucose (65 - 99 mg/dL) 94 Calcium (8.4 - 10.2 mg/dL) 7.4 L Phosphorus (2.5 - 4.5 mg/dL) 3.3 Magnesium (1.6 - 2.3 mg/dL) 1.2 L Total Bilirubin (0.2 - 1.3 mg/dL) 0.7 AST (14 - 36 U/L) 22 ALT (9 - 52 U/L) 29 Troponin I (< 0.11 ng/ml) 0.02 Albumin (3.5 - 5.0 g/dL) 1.7 L Hematology CBC w Diff NO MAN DIFF REQ MAN DIFF ORDERED WBC (4.8 - 10.8 /CUMM) 22.5 H 25.3 H RBC (4.20 - 5.40 /CUMM) 3.27 L 3.50 L Hgb (12.0 - 16.0 G/DL) 9.9 L 10.4 L Hct (37 - 47 %) 28.6 L 30.4 L MCV (81.0 - 99.0 FL) 87.4 86.9 MCH (27.0 - 31.0 PG) 30.2 29.7 RDW (11.5 - 14.5 %) 15.3 H 15.2 H Plt Count (130 - 400 /CUMM) 263 274 MPV (7.4 - 10.4 FL) 7.0 L 6.9 L Gran % (42.2 - 75.2 %) 89.1 H 92.6 H Lymphocytes % (20.5 - 51.1 %) 6.7 L 4.5 L Monocytes % (1.7 - 9.3 %) 4.2 2.9 Eosinophils % (0 - 5 %) 0 0 Basophils % (0.0 - 2.0 %) 0 0 Absolute Granulocytes (1.4 - 6.5 /CUMM) 20.0 H 23.4 H Segmented Neutrophils (42.2 - 75.2 %) 88 H Band Neutrophils (0.0 - 5.0 %) 7 H Absolute Lymphocytes (1.2 - 3.4 /CUMM) 1.5 1.1 L Lymphocytes (20.5 - 51.1 %) 3 L Monocytes (1.7 - 9.3 %) 2 Absolute Monocytes (0.10 - 0.60 /CUMM) 0.9 H 0.7 H Absolute Eosinophils (0.0 - 0.7 /CUMM) 0 0 Absolute Basophils (0.0 - 0.2 /CUMM) 0 0 Platelet Estimate (ADEQUATE) ADEQUATE Polychromasia 1+ Anisocytosis 1+ PUBS MCHC (33.0 - 37.0 G/DL) 34.6 34.2 07/26 07/25 1412 2315 Hematology CBC w Diff MAN DIFF ORDERED NO MAN DIFF REQ WBC (4.8 - 10.8 /CUMM) 21.2 H 15.1 H RBC (4.20 - 5.40 /CUMM) 3.70 L 4.22 Hgb (12.0 - 16.0 G/DL) 10.6 L 12.0 Hct (37 - 47 %) 31.1 L 35.6 L MCV (81.0 - 99.0 FL) 84.0 84.5 MCH (27.0 - 31.0 PG) 28.8 28.5 RDW (11.5 - 14.5 %) 16.2 H 16.6 H Plt Count (130 - 400 /CUMM) 348 347 MPV (7.4 - 10.4 FL) 6.9 L 7.0 L Gran % (42.2 - 75.2 %) 90.6 H 73.4 Lymphocytes % (20.5 - 51.1 %) 6.9 L 19.2 L Monocytes % (1.7 - 9.3 %) 2.4 6.5 Eosinophils % (0 - 5 %) 0 0.7 Basophils % (0.0 - 2.0 %) 0.1 0.2 Absolute Granulocytes (1.4 - 6.5 /CUMM) 19.2 H 11.1 H Segmented Neutrophils (42.2 - 75.2 %) 90 H Band Neutrophils (0.0 - 5.0 %) 3 Absolute Lymphocytes (1.2 - 3.4 /CUMM) 1.5 2.9 Lymphocytes (20.5 - 51.1 %) 5 L Monocytes (1.7 - 9.3 %) 2 Absolute Monocytes (0.10 - 0.60 /CUMM) 0.5 1.0 H Absolute Eosinophils (0.0 - 0.7 /CUMM) 0 0.1 Absolute Basophils (0.0 - 0.2 /CUMM) 0 0 Platelet Estimate (ADEQUATE) ADEQUATE Normocytic RBCs VERIFIED Normochromic RBCs VERIFIED PUBS MCHC (33.0 - 37.0 G/DL) 34.3 33.7 Other Body Source Fld Total RBCs Counted (%) 100 Serology RPR Titer/FTA (NONREACTIVE) NONREACTIVE Urines Urinalysis LIGHT H Urine Color (YEL,AMB,STR) YEL Urine Clarity (CLEAR) CLEAR Urine pH (5.0 - 8.0) 6.5 Ur Specific Rowe (1.001 - 1.035) 1.020 Urine Protein (NEG,<30 MG/DL) NEG Urine Ketones (NEG) NEG Urine Nitrite (NEG) NEG Urine Bilirubin (NEG) NEG Urine Urobilinogen (0.1 - 1.0 EU/dl) 0.2 Ur Leukocyte Esterase (NEG) TRACE H Ur Microscopic SEDIMENT EXAMINED Urine RBC (0 - 5 /HPF) 10-15 H Urine WBC (0 - 2 /HPF) 5-10 H Ur Epithelial Cells (NONE,FEW) FEW Urine Crystals 1+ CA OX H Urine Bacteria (NEG/NONE) MOD H Urine Mucus (FEW,NONE) MOD H Urine Hemoglobin (NEG) MOD H Urine Glucose (N MG/DL) NEG Microbiology Date/Time Procedure - Status Source Growth 07/26 2100 Surveillance Culture - RECD UPPER RESP 07/26 2100 Surveillance Culture - RECD GI 07/26 1320 Urine Culture - RES URINE ROUT Impression/Plan Impression/Plan Impression/Plan: General Appearance: well developed/nourished, alert, awake, mild distress, obese Head: atraumatic, normal appearance Eyes: Bilateral: normal appearance, PERRL, EOMI, pale conjunctivae. Ears, Nose, Throat: normal pharynx, normal ENT inspection Neck: normal inspection, supple, full range of motion Respiratory: normal breath sounds, quiet respiration, lungs clear, mild wheezing on the right base Cardiovascular: regular rate/rhythm, tachycardia Breasts Breast appear nl Gastrointestinal: soft, non-tender, tenderness, C section incision appears clean and intact. No drainage Back: normal inspection Extremities: normal inspection, normal capillary refill, no edema Groin site looks normal Good pulses on the right slighly diminished on the left but good capillary refill, no tenderness or tingling IMPRESSION Patient is a 31-year-old female with no significant past medical history presented to the childbirth center for delivery. Patient had hemorrhage secondary to uterine artery lacerations. No history of bleeding disorders. She was transfused 2 units of blood and IV fluids along with MIsoprostol rectally. Bleeding stopped however she was still found to have 1000cc of blood in her uterus and was sent down to IR for possible embolization. She underwent bilateral hypogastric artery embolization in the IR suite by Dr. Germain however no active sources of bleeding was found. Patient has been currently transferred to ICU for close monitoring of hemodynamics. SO far pt has had 4 units of prbc and stable ISSUES * hemorrhage due to laceration of uterine arteries / Status post IR embolization of hypogastric arteries/no active source of bleeding identified * Anemia secondary to acute blood loss, s/p 4units stable * Status post section * Tachycardia, improved with leukocytosis with bandemia, no active infection noted * Mildly reduce pulse on the left side (nonintervention site) with no symptoms of ischemia /needs monitoring REC Stable Bleeding has stopped Dr. Vang aware and wishes the patient to be transferred, and pt appears stable for transfer Cont all meds Frequent check of the pulses of lower ext COnt other symptomatic rx Follow for fevers etc Will follow prn if patient has any further issues Discussed with the patient and
--- NOTE | 2017-07-27 10:09 | INTERVENTIONAL RADIOLOGY RPT ---
CLINICAL HISTORY: This patient is a 31-year-old status post with post hemorrhage and persistent tachycardia despite 2 units of blood and fluid resuscitation. Passing clots per the vagina. Dr. Meliza Vang requesting emergent bilateral hypogastric artery embolization as a life saving measure. PROCEDURES: 1. Left hypogastric arteriogram. 2. Left hypogastric artery embolization using gelfoam pledgets. 3. Right hypogastric arteriogram. 4. Right hypogastric artery embolization using gelfoam pledgets. 5. Closure of the right common femoral arteriotomy with manual pressure. PHYSICIANS: Dr. Elena Germain (attending). MONITORING: The procedure was performed with continuous blood pressure, pulse oximetry as well as heart rate monitoring was performed by an independent registered nurse. MEDICATIONS: Lidocaine 1%, 5 mL SQ. CONTRAST: 70 mL Optiray 320 FLUOROSCOPY TIME: 6.1 minutes DAP: 45.4 Gycm2 COMPLICATIONS: None ESTIMATED BLOOD LOSS: <5 mL SPECIMENS: None IMPLANT: None SITE MARKING: As part of the preprocedure verification policy, a site marking procedure was initiated. Due to the nature the procedure, the insertion site could not be predetermined thus invoking the policy of exemption to site laterality and marking. Insertion site marking was performed in the procedure room in conjunction with imaging confirmation. PROCEDURE NOTE: Informed consent was obtained from the patient prior to the procedure. During this process, the procedure and potential alternatives were explained along with the intended outcome and benefits. The risks of the procedure, including the possibility of an unsuccessful procedure, as well as the risk of not doing the procedure, were discussed. The patient was given the opportunity to ask questions regarding the procedure and appeared competent to make decisions. A signed consent form documenting this discussion was placed in the medical record. A time-out procedure was performed. The patient was placed supine on the fluoroscopy table. A time-out procedure was performed. The right groin was prepped and draped in usual sterile fashion. All elements of maximal sterile barrier technique followed including use of cap, mask, sterile gown, sterile gloves, a sterile full body drape and hand hygiene. Also followed skin preparation with 2% chlorhexidine for cutaneous antisepsis, and sterile ultrasound preparation with sterile gel and probe cover when applicable. 1% lidocaine was used to obtain local anesthesia the skin and deeper tissues. Using standard interventional, sterile and Seldinger technique, a 5-Fr sheath was introduced over a 0.035 inch [place] wire into the right common femoral artery. A 5-Fr Contra catheter was introduced over the wire into the distal abdominal aorta. The Contra catheter was then exchanged over a 0.035 inch angled glide wire for an angled tapered glide catheter and over the aortic bifurcation. The catheter was then placed into the left hypogastric artery and an arteriogram was performed. Embolization of the left hypogastric artery was then performed using gelfoam pledgets. Fluoroscopic guidance was utilized throughout the embolization procedure. There was no inadvertent embolization. Good cessation of arborization was achieved. A standard completion left hypogastric arteriogram was performed which demonstrated successful embolization. The angled tapered glide catheter was formed into a loop and pulled down into the right hypogastric artery. A right hypogastric arteriogram was performed. Embolization of the right hypogastric artery was then performed using fluoroscopic guidance and gelfoam pledgets. There was no inadvertent embolization. Good cessation of arborization was achieved. The embolization procedure was performed entirely with fluoroscopic guidance. A standard completion right uterine arteriogram was performed which demonstrated successful embolization. The patient tolerated the procedure well. The sheath was removed from the right groin. Good hemostasis was achieved. FINDINGS: 1. Right and left hypogastric arteriograms did not demonstrate active extravasation. 2. Successful left hypogastric artery embolization using gelfoam pledgets. 3. Successful right hypogastric artery embolization using gelfoam pledgets. 4. Closure of the right common femoral arteriotomy with manual pressure. IMPRESSION: Successful embolization of the bilateral hypogastric arteries for treatment of life threatening post hemorrhage. PLAN: 1. The patient was stable after the procedure and was transported to the ICU. 2. The patient should remain in bed with the right leg straight for 5 hours post arteriotomy. Orders written for groin and pedal pulse checks during frequent vital sign checks. Handoff given to Nuzhat, the ICU nurse airport location manager.
[2017-07-27 14:56] LABS: ABSOLUTE BASOPHIL COUNT 0 /CUMM (0.0-0.2); ABSOLUTE EOSINOPHIL COUNT 0.1 /CUMM (0.0-0.7); ABSOLUTE GRANULOCYTE CT 13.8 /CUMM (1.4-6.5); ABSOLUTE LYMPH COUNT 2.3 /CUMM (1.2-3.4); ABSOLUTE MONOCYTE COUNT 1.1 /CUMM (0.10-0.60); BASOPHIL % 0.2 % (0.0-2.0); EOSINOPHIL % 0.5 % (0-5); GRANULOCYTE % 79.4 % (42.2-75.2); HEMATOCRIT 27.1 % (37-47); MEAN CORPUSCULAR HGB 29.8 PG (27.0-31.0); MEAN CORPUSCULAR VOLUME 87.6 FL (81.0-99.0); MEAN PLATELET VOLUME 6.9 FL (7.4-10.4); PLATELET COUNT 236 /CUMM (130-400); RBC DISTRIBUTION WIDTH 16.1 % (11.5-14.5); RED BLOOD CELL CT 3.09 /CUMM (4.20-5.40); WHITE BLOOD CELL COUNT 17.4 /CUMM (4.8-10.8)
[2017-07-28 09:02] LABS: ABSOLUTE BASOPHIL COUNT 0.1 /CUMM (0.0-0.2); ABSOLUTE EOSINOPHIL COUNT 0.2 /CUMM (0.0-0.7); ABSOLUTE GRANULOCYTE CT 12.4 /CUMM (1.4-6.5); ABSOLUTE LYMPH COUNT 3.1 /CUMM (1.2-3.4); ABSOLUTE MONOCYTE COUNT 0.7 /CUMM (0.10-0.60); BASOPHIL % 0.4 % (0.0-2.0); EOSINOPHIL % 1.3 % (0-5); GRANULOCYTE % 75.3 % (42.2-75.2); HEMATOCRIT 28.6 % (37-47); MEAN CORPUSCULAR HGB 29.9 PG (27.0-31.0); MEAN CORPUSCULAR HGB CONC 34.6 G/DL (33.0-37.0); MEAN CORPUSCULAR VOLUME 86.3 FL (81.0-99.0); MEAN PLATELET VOLUME 7.1 FL (7.4-10.4); PLATELET COUNT 291 /CUMM (130-400); RBC DISTRIBUTION WIDTH 16.7 % (11.5-14.5); RED BLOOD CELL CT 3.31 /CUMM (4.20-5.40); WHITE BLOOD CELL COUNT 16.4 /CUMM (4.8-10.8)
--- NOTE | 2017-07-28 09:20 | PN- Post Delivery/GYN ---
Subjective Subjective: C/O INCREASED HEART RATE WITH WALKING NO SOB Objective Last 24 Hrs of Vital Signs/I&O PER CHART Physical Exam: PE THIN PALE WF IN NAD ABD SOFT NT INSICION CDI EXT +2 EDEMA- HOMANS Assessment/Plan Assessment/Plan ASSESS S/P C/S SEVERE ANEMIA IR FOR HEMMORHAGE PLAN CHECK CBC
[2017-07-29] MEDS ORDERED: IBUPROFEN800 M1 PO (10:07)
[2017-07-29] MEDS ORDERED: PERCOCET 5-3251 EACH PO (10:07)
[2017-07-29] MEDS ORDERED: DOCUSATE SODIU100 M3 PO (10:07)
== END 2017-07-29 11:45 | DRG 765 ==
LOC: CBCO 20:42 → GNO 21:34 → CRI 07-26 → GNO 07-26 18:00 → CRI 07-26 19:47 → GNO 07-27 12:38
PROVIDERS: Specialist; Student in an Organized Health Care Education/Training Program
PROC: 10D00Z1 Extraction of Products of Conception, Low, Open Approach (ICD-10-PCS; principal; 2017-07-26)
PROC: 04QF0ZZ Repair Left Internal Iliac Artery, Open Approach (ICD-10-PCS; principal; 2017-07-26)
PROC: 04QE0ZZ Repair Right Internal Iliac Artery, Open Approach (ICD-10-PCS; principal; 2017-07-26)
PROC: 04LE3DT Occlusion of Right Uterine Artery with Intraluminal Device, Percutaneous Approach (ICD-10-PCS; 2017-07-26)
PROC: B41GZZZ Fluoroscopy of Left Lower Extremity Arteries (ICD-10-PCS; 2017-07-26)
PROC: 04LF3DU Occlusion of Left Uterine Artery with Intraluminal Device, Percutaneous Approach (ICD-10-PCS; 2017-07-26)
PROC: B41FZZZ Fluoroscopy of Right Lower Extremity Arteries (ICD-10-PCS; 2017-07-26)
PROC: 30233N1 Transfusion of Nonautologous Red Blood Cells into Peripheral Vein, Percutaneous Approach (ICD-10-PCS; 2017-07-26)
DX: O48.0 Post-term pregnancy (principal); D62 Acute posthemorrhagic anemia; O72.1 Other immediate postpartum hemorrhage; E83.42 Hypomagnesemia; O71.89 Other specified obstetric trauma; Z3A.41 41 weeks gestation of pregnancy; O99.02 Anemia complicating childbirth; O75.89 Other specified complications of labor and delivery; Z37.0 Single live birth
CPT/HCPCS: 6050; CCU; GNOS; 36415; 81001; 82436; 86920; 87086; 93005; 93010; C1725; C1769; G0378; G0463; J0131; J0610; J0690; J1650; J1940; J7042; J7120; P9016

== ENCOUNTER 2017-11-24 20:19 | Emergency (ER) | payer OTHER ==
[~2017-11-24 20:19] MED LIST changes: +DOCUSATE SODIU100 M3 PO; +IBUPROFEN800 M1 PO; +PERCOCET 5-3251 EACH PO
[2017-11-24 20:21] VITALS: BP 129/91
--- NOTE | 2017-11-24 21:53 | ED GENERAL ADULT ---
History of Present Illness General Chief Complaint: General Adult Stated Complaint: MULTI COMPLAINTS Source: patient Exam Limitations: no limitations Vital Signs & Intake/Output Vital Signs & Intake/Output Vital Signs Date Time Temp Pulse Resp B/P B/P Pulse O2 O2 Flow FiO2 Mean Ox Delivery Rate 11/24 2238 96 Room Air 11/24 2020 97.8 92 18 129/91 99 Room Air Allergies Coded Allergies: Sulfa (Sulfonamide Antibiotics) (Severe, ANAPHYLAXIS 08/08/16) procaine (ANAPHYLAXIS 08/08/16) Reconcile Medications Docusate Sodium 100 MG CAPSULE 100 MG PO AT BEDTIME PRN STOOL SOFTENER Ibuprofen 800 MG TABLET 800 MG PO Q6P PRN UTERINE CRAMPING Oxycodone HCl/Acetaminophen (Percocet 5-325 MG Tablet) 5 MG-325 MG TABLET 1 TAB PO Q4P PRN PAIN SCALE 4-6 (MODERATE) Vit No.130/Iron/FA ( Tablet) 27 MG IRON-800 MCG TABLET 1 TAB PO DAILY SUPPLEMENT (Reported) Triage Note: PT TO TRIAGE C/O CHEST DISCOMFORT SINCE THIS MORNING, HEADACHE, N/V. PT ALSO C/O TEETH PAIN. PT DENIES SOB. PT STATES HAS ALSO NOT SLEPT SINCE 10AM YESTERDAY D/T BABY AT HOME. DENIES ANY CHANCE OF . Triage Nurses Notes Reviewed? yes Onset: Gradual Duration: hour(s):, waxing and waning Timing: recent history Injury Environment: home Severity: mild, moderate Modifying Factors: Improves With: rest. Associated Symptoms: dizziness : No Patient currently breastfeeds: No HPI: 32 yo woman, h/o section 4 months ago, followed by anemia, presents with 7-8 hours of "funny feeling in my chest.... I'm an anxious person... but this feels different... like someone rubbing on paper..." "I took a hot shower... and then felt dizzy afterwards a little bit." "It's hard to describe... maybe like a funny feeling in the center of my chest. " No fever, chills, nausea, vomiting, diarrhea. Past History Travel History Traveled to [place] past 21 day No Medical History Any Pertinent Medical History? see below for history Neurological: NONE EENT: NONE Cardiovascular: NONE Respiratory: asthma Gastrointestinal: lactose intolerance Hepatic: NONE Renal: NONE Musculoskeletal: NONE Psychiatric: anxiety Endocrine: NONE Blood Disorders: NONE Cancer(s): NONE CREDIT SUPPORT SPECIALIST/Reproductive: miscarriage History of MRSA: No History of VRE: No History of CDIFF: No Surgical History Surgical History: Psychosocial History Who do you live with Spouse Services at Home None What is your primary language Lithuanian Tobacco Use: Never used Family History Hx Contributory? No Review of Systems Review of Systems Constitutional: Reports: no symptoms. EENTM: Reports: no symptoms. Respiratory: Reports: no symptoms. Cardiovascular: Reports: no symptoms. GI: Reports: no symptoms. Genitourinary: Reports: no symptoms. Musculoskeletal: Reports: no symptoms. Skin: Reports: no symptoms. Neurological/Psychological: Reports: no symptoms. Hematologic/Endocrine: Reports: no symptoms. Immunologic/Allergic: Reports: no symptoms. All Other Systems: Reviewed and Negative Physical Exam Physical Exam General Appearance: well developed/nourished, mild distress Head: atraumatic, normal appearance Eyes: Bilateral: normal appearance. Ears, Nose, Throat: normal pharynx, normal ENT inspection Neck: normal inspection, supple, full range of motion Respiratory: normal breath sounds, chest non-tender, no respiratory distress, quiet respiration Cardiovascular: regular rate/rhythm Gastrointestinal: normal bowel sounds, soft, non-tender, no organomegaly Back: normal inspection, normal range of motion Extremities: normal inspection, normal capillary refill, normal range of motion, no edema Neurologic/Psych: no motor/sensory deficits, awake, alert, oriented x 3 Skin: intact, normal color, warm/dry Core Measures ACS in differential dx? No CVA/TIA Diagnosis: No Sepsis Present: No Sepsis Focused Exam Completed? No Progress Differential Diagnoses I considered the following diagnoses in my evaluation of the patient: anemia vs palpitations vs dehydration vs other. Plan of Care: Orders Procedure Date/time Status TROPONIN LEVEL 11/24 2212 Complete D-DIMER 11/24 2212 Complete COMPREHENSIVE METABOLIC PANEL 11/24 2212 Complete CBC WITHOUT DIFFERENTIAL 11/24 2212 Complete EKG 11/24 2021 Active Laboratory Tests 11/24/172224: Anion Gap 14, Estimated GFR > 60, BUN/Creatinine Ratio 11.4, Glucose 88, Calcium 9.7, Total Bilirubin 0.5, AST 21, ALT 22, Alkaline Phosphatase 117, Troponin I < 0.01, Total Protein 8.7 H, Albumin 4.7, Globulin 4.0, Albumin/Globulin Ratio 1.2, D-Dimer High Sensitivty < 200, CBC w Diff NO MAN DIFF REQ, RBC 5.34, MCV 78.3 L, MCH 25.8 L, MCHC 33.0, RDW 15.6 H, MPV 6.4 L, Gran % 61.4, Lymphocytes % 31.7, Monocytes % 4.7, Eosinophils % 1.9, Basophils % 0.3, Absolute Granulocytes 6.6 H, Absolute Lymphocytes 3.4, Absolute Monocytes 0.5, Absolute Eosinophils 0.2, Absolute Basophils 0 Diagnostic Imaging: Viewed by Me: Radiology Read. Discussed w/RAD: Radiology Read. CXR Impression: PATIENT: JACIEL JULIAN PRESENT AGE: 32 PATIENT ACCOUNT NO: [id number] : 84 LOCATION: [facility] ORDERING PHYSICIAN: Xander Carey MD SERVICE DATE: 11/24/17 EXAM TYPE: RAD - XRY- CHEST XRAY, TWO VIEWS EXAMINATION: XR CHEST CLINICAL INFORMATION: Chest pain. COMPARISON: None TECHNIQUE: 2 views of the chest were obtained. FINDINGS: No significant abnormality is noted involving the heart, lungs, mediastinum, bony thorax or soft tissues. IMPRESSION: Unremarkable examination. DICTATED BY: Avelino Pittman MD DATE/TIME DICTATED:11/24/172349 [employer]:AMALIA DATE/ TIME TRANSCRIBED:11/24/172349 CONFIDENTIAL, DO NOT COPY WITHOUT APPROPRIATE AUTHORIZATION. <Electronically signed in Other Vendor System> SIGNED BY: Avelino Pittman MD 11/24/172353 Initial ED EKG: nsr, biphasic p wave, no acute changes Departure Departure Disposition: HOME OR SELF CARE Condition: Stable Clinical Impression Primary Impression: Dizziness Secondary Impressions: Chest pain Referrals: Tamika Hayes MD (PCP/Family) Departure Forms: Customer Survey General Discharge Information Comments 11/25/17, 0.02... pt with benign labs/ekg... safe for discharge with close follow up advised. Critical Care Note Critical Care Note Critical Care Time: non-applicable ED Attending Observation Initial Observation Note: I have seen and personally examined JACIEL JULIAN on 11/24/17 at 2235. I agree with the current emergency department documentation. The disposition (admission or discharge) is uncertain at this time, she needs a period of observation for the following reason(s): The ED Nurse caring for this patient has been personally informed as to what the patient is being observed for.
[2017-11-24 22:35] LABS: ABSOLUTE BASOPHIL COUNT 0 /CUMM (0.0-0.2); ABSOLUTE EOSINOPHIL COUNT 0.2 /CUMM (0.0-0.7); ABSOLUTE GRANULOCYTE CT 6.6 /CUMM (1.4-6.5); ABSOLUTE LYMPH COUNT 3.4 /CUMM (1.2-3.4); ABSOLUTE MONOCYTE COUNT 0.5 /CUMM (0.10-0.60); BASOPHIL % 0.3 % (0.0-2.0); EOSINOPHIL % 1.9 % (0-5); GRANULOCYTE % 61.4 % (42.2-75.2); HEMATOCRIT 41.8 % (37-47); MEAN CORPUSCULAR HGB 25.8 PG (27.0-31.0); MEAN CORPUSCULAR VOLUME 78.3 FL (81.0-99.0); MEAN PLATELET VOLUME 6.4 FL (7.4-10.4); PLATELET COUNT 477 /CUMM (130-400); RBC DISTRIBUTION WIDTH 15.6 % (11.5-14.5); RED BLOOD CELL CT 5.34 /CUMM (4.20-5.40); WHITE BLOOD CELL COUNT 10.8 /CUMM (4.8-10.8)
--- NOTE | 2017-11-24 23:54 | RADIOLOGY REPORT ---
EXAMINATION: XR CHEST CLINICAL INFORMATION: Chest pain. COMPARISON: None TECHNIQUE: 2 views of the chest were obtained. FINDINGS: No significant abnormality is noted involving the heart, lungs, mediastinum, bony thorax or soft tissues. IMPRESSION: Unremarkable examination.
[2018-04-16] MEDS ORDERED: CIPRO500 M1 PO (06:02)
[2018-04-16] MEDS ORDERED: FLAGYL500 MG PO (06:02)
[2018-04-16] MEDS ORDERED: PRILOSEC OTC20 M1 PO (06:37)
[2018-04-16] MEDS ORDERED: ZOFRAN ODT4 M1 SL (06:37)
== END 2017-11-24 23:59 ==
LOC: ERH 20:19
PROVIDERS: Pediatrics
DX: R42 Dizziness and giddiness (principal); R07.9 Chest pain, unspecified
CPT/HCPCS: 71046; 93005; 93010